=== PATIENT | male | born 1990 | race Two or more races ===

== ENCOUNTER 2025-01-12 20:55 | Emergency (ER) | payer MEDICAID, SELFPAY ==
[2025-01-12] VITALS (9 sets, daily range): BP systolic 93–111; BP diastolic 58–73; PULSE 92–117; RESP 16–24; TEMP 36.9–37.4; O2SAT 95–99; BMI 25.4
--- NOTE | 2025-01-12 21:04 | XR_ITS ---
Examination: Left elbow 3 views Technique: Elbow AP, oblique, lateral 3 views Exam date and time: Noont, 2024 2108 hours INDICATIONS: Patient fell today with elbow pain. FINDINGS: Complete elbow dislocation, articulating surface of the humerus displaced anteriorly Displaced fracture of the medial humeral condylar epiphysis IMPRESSION: Elbow dislocation with fracture.
--- NOTE | 2025-01-12 21:34 | PD.EDRME ---
Rapid Medical Screening Exam E Arrival date/time: 01/12/25 20:55 34M with history of alcohol use (drank earlier today) presents to ED with L elbow deformity and pain after falling. Patient states he's broken that area 3 times before. Chief Complaint: Extremity Injury, Upper Time Seen by Provider: 01/12/25 21:27 Vital signs: Vital Signs Temperature 98.4 F 01/12/25 21:29 Pulse Rate 92 01/12/25 21:29 Respiratory Rate 16 01/12/25 21:29 Blood Pressure 94/60 01/12/25 21:29 Pulse Oximetry (%) 96 01/12/25 21:29 Oxygen Delivery Method Room Air 01/12/25 21:29
--- NOTE | 2025-01-12 22:23 | PD.EDUPEX ---
Upper Extremity Injury RME/HPI General Chief Complaint: Extremity Injury, Upper Stated Complaint: L ELBOW INJURY Time Seen by Provider: 01/12/25 21:27 Arrival date/time: 01/12/25 20:55 RME / HPI RME / HPI narrative: 01/12/25 20:55 34M with history of alcohol use (drank earlier today) presents to ED with L elbow deformity and pain after falling. Patient states he's broken that area 3 times before. --------- This section includes all my notes and documentations, including HPI, PE, and ED course. Se Keller MD HPI: 34yo male presents to the ED for a chief complaint of left upper extremity injury. Patient states he was outside when he fell and hit left elbow hit the concrete. Patient denies any head strikes or loss of consciousness. Patient denies any other injuries. He declined to share more details about the fall. No other complaints reported. ROS: All negative except as documented in HPI. Physical Exam: General: Alert and oriented. In obvious pain. Eyes: Conjunctivae and lids clear. EOMI. PERRL. ENT: No signs of head trauma. Neck: Supple. No tenderness. Heart: RRR. Lungs: No respiratory distress. Good air movement. No rhonchi, wheezing, rales. Chest: No tenderness. Abdomen: Soft and nontender. Normal bowel sounds. No distension. No rebound or guarding. Back: No tenderness. Skin: Warm and dry. Neuro: Alert and oriented X 3. Cranial Nerves II-XII grossly intact. No peripheral motor deficits. Musculoskeletal: Remarkable for left elbow tenderness and deformity. All other major joints and bones are not tender with no limited ROM. I reviewed all diagnostic test results. My interpretation of the left elbow x-ray is dislocation and fracture. Blood tests are unremarkable. At this point, diagnoses include dislocation and fracture of left elbow. I discussed the case with our orthopedic surgeon, Dr. Persaud.? About the presentation and exam and diagnostics and treatments here.? And need of further care in the hospital.? Recommended transfer to trauma. I discussed the case with [facility] trauma orthopedic surgeon, Dr. Keller. About the presentation and exam and diagnostics and treatments here. And need of further care there. Recommended reduction in splint and outpatient follow-up. Under moderate sedation using fentanyl and Versed, patient was successfully reduced (confirmed with repeat x-rays) then applied long-arm splint and arm sling, see procedure notes. Significant improvement noted. Based on my best medical judgment, made decision no further evaluation or treatment indicated at this time. Patient understands and agrees to the discharge instructions customized and printed, see below. Discharge Instructions from Dr. Keller printed for you: 1. Your left elbow dislocation was successfully reduced. 2. Initially, I discussed your case with Dr. Persaud (our orthopedic surgeon). He recommended transfer to trauma orthopedic surgeon. I discussed your case with Dr. Keller (trauma orthopedic surgeon at [facility]). He recommended outpatient follow-up. 3. Wear the arm sling and keep the splint clean and dry and intact until cleared by a doctor taking care of you. 4. Ibuprofen 800 mg every 6-8 hours today and tomorrow to decrease inflammation then as needed. 5. Tylenol with codeine for severe pain. 6. Elevate above the heart for 3 days is much as possible. While laying on your back, place a pillow on your chest and placed the elbow on the pillow. 7. See a private doctor later today on 01/13/2025 for recheck and further care. Ask for a referral to see an orthopedic surgeon. 8. Seek immediate medical care with intolerable pain, if you can't move your fingers, your fingers turn cold and blue, or with any concerns. Se Keller MD Related Data Previous Rx's ?Medication ?Instructions ?Recorded acetaminophen 650 mg 650 mg PO Q8H PRN fever or pain 10/26/18 tablet,extended release #30 tabs acetaminophen 650 mg 650 mg PO Q8H PRN fever or pain 10/26/18 tablet,extended release #30 tabs ciprofloxacin HCl 500 mg tablet 500 mg PO Q12H #20 tabs 10/26/18 (Cipro) ibuprofen 600 mg tablet 600 mg PO Q8H PRN fever or pain 10/26/18 #30 tabs ibuprofen 600 mg tablet 600 mg PO Q8H PRN fever or pain 10/26/18 #30 tabs acetaminophen 300 mg-codeine 30 mg 2 tab PO Q8H PRN pain #20 tabs 01/13/25 tablet ibuprofen 800 mg tablet 800 mg PO Q8H PRN pain #30 tabs 01/13/25 Allergies Allergy/AdvReac Type Severity Reaction Status Date / Time pistachio nut Allergy Intermediate TURNS Verified 01/12/25 21:03 RED,THROAT SWELLS,EYES TURN YELLOW Review of Systems Review of Systems Systems Reviewed: All systems reviewed, normal except as documented Past Medical History Past Medical History CARDIAC: Negative Congestive Heart Failure RESPIRATORY: Negative Chronic Obstructive Pulmonary Disease (COPD) GENITOURINARY: Negative Renal Disease ENDOCRINE: Negative Diabetes Mellitus Type 1 or Diabetes Mellitus Type 2 Social History SMOKING STATUS: Current every day smoker ED Exam Narrative Physical exam: As noted in HPI. Course Quality Measures none Orders Category Date Time Status Insert IV NOW Care 01/12/25 21:33 Completed XR elbow comp LT min 3V Stat Exams 01/12/25 21:04 Completed XR elbow comp LT min 3V Stat Exams 01/12/25 23:08 Completed CBC Stat Lab 01/12/25 22:19 Completed CMP [Comprehensive Metabolic Panel] Stat Lab 01/12/25 22:19 Completed Magnesium Stat Lab 01/12/25 22:19 Completed PT [Prothrombin Time with INR] Stat Lab 01/12/25 22:19 Completed PTT [Partial Thromboplastin Time] Stat Lab 01/12/25 22:19 Completed Midazolam Inj [Versed Inj] Med 01/12/25 21:49 Discontinued 7.5 mg IVP X1 ONE Ondansetron Inj [Zofran Inj] Med 01/12/25 21:50 Discontinued 4 mg IVP X1 ONE Sodium Chloride 0.9% 1000 ml [Ns] 1,000 ml Med 01/12/25 21:50 Discontinued IV 999 mls/hr fentaNYL INJ [Sublimaze Inj] Med 01/12/25 21:49 Discontinued 100 mcg IVP X1 ONE Vital Signs Vital signs: Vital Signs Temperature 98.4 F 01/12/25 21:29 Pulse Rate 92 01/12/25 21:29 Respiratory Rate 16 01/12/25 21:29 Blood Pressure 94/60 01/12/25 21:29 Pulse Oximetry (%) 96 01/12/25 21:29 Oxygen Delivery Method Room Air 01/12/25 21:29 Procedures -ED Orthopedic Joint Reduction Joint #1: Time Out Performed: Yes Side: Left Joint Reduction Location: elbow Analgesia: procedural sedation Technique used: traction/counter-traction Post-reduction neuro exam: intact and no change Post-reduction vascular: intact and no change Post Reduction X-Ray Obtained: Yes Post Reduction X-Ray Results: reduced Splint Applied: Yes Patient Tolerated Procedure: other (see procedural sedation note) Procedural Sedation Indication: fracture/dislocation reduction Presedation Evaluation: Patient is alert, awake, and oriented x4. Patient is communicating and answering questions appropriately. Preparation: compliance monitor applied, pulse oximeter, capnometry used, reversal agents at bedside, suction/airway equipment at bedside and IV secured Fentanyl: IV (100 mcg) Midazolam: IV (7.5mg) Complications: hypoxia Interventions: oxygen applied and airway repositioned Splint Fabrication: Clinician Made Type: Other (Posterior long arm) Reason for Splint: Optimal Positioning, Pain Management and Minimize Deformities Site condition: Intact Circulation Distal to Splint: Yes Movement Distal to Splint: Yes Senation Distal to Splint: Yes Tolerance: Tolerates Well Extremity Injury MDM Narrative MDM Narrative:: Scribe Attestation: 01/12/25 - Kamala Wilder am scribing for and in the presence of Dr. Keller. Patient data External records reviewed:: [facility] previous records (Per chart review, patient has no relevant previous ED visits.) Clinical information provided by:: patient Social determinants that could affect healthcare access:: alcohol use Patient has the following chronic illnesses:: none How is presenting disease/condition affected by chronic disease/condition?: no chronic disease Evaluation data The following diagnostics were reviewed and interpreted by me:: lab results and radiology exam(s) Lab and/or radiology exams considered but not ordered:: none Interpretation Summary: I reviewed all diagnostic test results. My interpretation of the left elbow x-ray is dislocation and fracture. Blood tests are unremarkable. Medications / Prescriptions Medications or Prescriptions considered but not ordered:: none Medication administrations:: Medication Administration History Discontinued Medications Fentanyl Citrate (Fentanyl Cit Inj 50 Mcg/Ml Amp 2ml) 100 mcg IVP X1 ONE Stop: 01/12/25 21:50 Last Admin: 01/12/25 23:00 Dose: 100 mcg Documented By: DON Comments: C Sodium Chloride (Ns) 1,000 mls @ 999 mls/hr IV .Q1H1M ONE Stop: 01/12/25 22:50 Last Infusion: 01/13/25 00:05 Dose: Infused Documented By: Admin: 01/12/25 22:41 Dose: 999 mls/hr Documented By: DON Midazolam HCl (Midazolam Inj 1 Mg/Ml Vial 2 Ml) 7.5 mg IVP X1 ONE Stop: 01/12/25 21:50 Last Admin: 01/12/25 23:00 Dose: 7.5 mg Documented By: DON Comments: ADMIN BY MD KELLER PRIOR TO PROCEDURAL SEDATION. Ondansetron HCl (Ondansetron Inj 2 Mg/Ml Inj 2 Ml) 4 mg IVP X1 ONE; Protocol Stop: 01/12/25 21:51 Last Admin: 01/12/25 22:42 Dose: 4 mg Documented By: DON NS, Fentanyl, Verced, Zofran Consultations Consultation(s) initiated? (list below): Yes Consultation #1 (Physician, Specialty, Details): I discussed the case with our orthopedic surgeon, Dr. Persaud.? About the presentation and exam and diagnostics and treatments here.? And need of further care in the hospital.? Recommended transfer to trauma. Time: 22:29 Diagnosis Upper Extremity Injury Differential Diagnosis: sprain and strain of wrist, fracture of wrist, finger sprain, dislocation of finger, Colles' fracture, fracture of hand, dislocation of shoulder, fracture of humerus and fracture of clavicle Most likely diagnosis given after review of the tests above:: Dislocation and fracture of left elbow Admission Indicated Admission indicated?: not indicated Explain why admission is indicated or not indicated:: I discussed the case with our orthopedic surgeon, Dr. Persaud.? About the presentation and exam and diagnostics and treatments here.? And need of further care in the hospital.? Recommended transfer to trauma. I discussed the case with [facility] trauma orthopedic surgeon, Dr. Keller. About the presentation and exam and diagnostics and treatments here. And need of further care there. Recommended reduction in splint and outpatient follow-up. Under moderate sedation using fentanyl and Versed, patient was successfully reduced (confirmed with repeat x-rays) then applied long-arm splint and arm sling, see procedure notes. Significant improvement noted. Admission Request Was there a request for admission?: No Disposition Plan Disposition Plan: Discharge Discharge Attestation Discharge Attestation: The patient and all family members were given an opportunity to ask questions and understood the discharge instructions. Discharge instructions specifically effects, indications for sooner follow up or return to the emergency department, and the expected course of current diagnosis. Patient condition: Stable Discharge Plan Plan Patient Disposition: HOME (Self Care) Prescriptions/Referrals Prescriptions/Med Rec: New ibuprofen 800 mg tablet 800 mg PO Q8H PRN (Reason: pain) Qty: 30 0RF acetaminophen-codeine 300-30 mg tablet 2 tab PO Q8H MDD 6 PRN (Reason: pain) Qty: 20 0RF No Action acetaminophen 650 mg tablet extended release 650 mg PO Q8H PRN (Reason: fever or pain) Qty: 30 0RF Rx Instructions: swallow whole; do not crush, chew, break, dissolve, cut, or open ibuprofen 600 mg tablet 600 mg PO Q8H PRN (Reason: fever or pain) Qty: 30 0RF Rx Instructions: prn pain / fever acetaminophen 650 mg tablet extended release 650 mg PO Q8H PRN (Reason: fever or pain) Qty: 30 0RF Rx Instructions: swallow whole; do not crush, chew, break, dissolve, cut, or open ciprofloxacin HCl [Cipro] 500 mg tablet 500 mg PO Q12H Qty: 20 0RF Rx Instructions: administer dose 2 hrs before/6 hrs after dairy products/calcium/zinc/iron-containing products ibuprofen 600 mg tablet 600 mg PO Q8H PRN (Reason: fever or pain) Qty: 30 0RF Rx Instructions: prn pain / fever Referrals: Flavio Liu MD [Primary Care Provider] - In 1 week Problem List Clinical Impression: Dislocation of left elbow, Fracture of left elbow Patient/Caregiver Discharge Instructions Discharge Activity: activity as tolerated Education Materials: ED Elbow Dislocation, ED Elbow Fracture Additional Instructions: Discharge Instructions from Dr. Keller printed for you: 1. Your left elbow dislocation was successfully reduced. 2. Initially, I discussed your case with Dr. Persaud (our orthopedic surgeon). He recommended transfer to trauma orthopedic surgeon. I discussed your case with Dr. Keller (trauma orthopedic surgeon at [facility]). He recommended outpatient follow-up. 3. Wear the arm sling and keep the splint clean and dry and intact until cleared by a doctor taking care of you. 4. Ibuprofen 800 mg every 6-8 hours today and tomorrow to decrease inflammation then as needed. 5. Tylenol with codeine for severe pain. 6. Elevate above the heart for 3 days is much as possible. While laying on your back, place a pillow on your chest and placed the elbow on the pillow. 7. See a private doctor later today on 01/13/2025 for recheck and further care. Ask for a referral to see an orthopedic surgeon. 8. Seek immediate medical care with intolerable pain, if you can't move your fingers, your fingers turn cold and blue, or with any concerns. Print Language: Luxembour[place] Stand Alone Forms: [employer] Award Info., Patient Portal Info Letter
[2025-01-12 22:31] LABS: Basophils % (Auto) 0 % (0-2.5); Eosinophils % (Auto) 0 % (0-10); Hematocrit 41.3 % (41.0-53.0); Hemoglobin 14.9 g/dL (13.5-16.0); Immature Granulocytes % (Auto) 1 % (0-0); Immature Granulocytes Auto 0.07 Thou/mm3 (0.00-0.00); Lymphocytes # (Auto) 1.6 Thou/mm3 (1.0-4.8); Lymphocytes % (Auto) 13 % (10-50); Mean Corpuscular HGB Conc 36.1 g/dl (31.0-37.0); Mean Corpuscular Volume 86 fL (80-100); Monocytes # (Auto) 0.6 Thou/mm3 (0.0-0.8); Monocytes % (Auto) 5 % (0-12); Neutrophils % (Auto) 82 % (37-80); Nucleated Red Blood Cell % 0 /100 WBC (0); Platelet Count 272 Thou/mm3 (140-440); RDW Standard Deviation 40.3 fL (35.1-43.9); Red Blood Count 4.81 Miln/mm3 (4.50-5.90); White Blood Count 12.3 Thou/mm3 (3.8-10.6)
[2025-01-12] MEDS: SODIUM CHLORIDE 0.9% 1000 ML 1,000 ML 999 ML IV (22:41)
[2025-01-12] MEDS: ONDANSETRON INJ 2 MG/ML INJ 2 ML 4 MG IVP (22:42)
[2025-01-12 22:43] LABS: Alanine Aminotransferase 23 U/L (10-49); Albumin, Serum 4.6 gm/dL (3.5-5.0); Anion Gap 12 (7-16); Aspartate Amino Transferase 22 U/L (0-34); BUN/Creatinine Ratio 7 Ratio (12-20); Bilirubin,Total 0.4 mg/dL (0.3-1.2); Blood Urea Nitrogen 8 mg/dL (9-23); Calcium 9.6 mg/dL (8.3-10.6); Calcium (Corrected) 9.6 mg/dL (8.5-10.1); Carbon Dioxide 23.5 mMol/L (20.0-31.0); Chloride 108 mMol/L (98-107); Creatinine (Component) 1.2 mg/dL (0.6-1.3); Estimated Creatinine Clearance 85.5 mL/min (>60); Globulin 2.2 gm/dL (2.3-3.5); Glucose 116 mg/dL (74-106); Magnesium 2.3 mg/dL (1.6-2.6); Osmolality,Calculated 284 (275-295); Potassium 3.9 mMol/L (3.4-5.1); Sodium 143 mMol/L (136-145); Total Protein 6.8 gm/dL (5.7-8.2); eGFR > 60 See Note
[2025-01-12 22:44] LABS: Albumin/Globulin Ratio 2.1 (1.2-2.2); Alkaline Phosphatase 66 U/L (46-116)
[2025-01-12 22:54] LABS: Partial Thromboplastin Time 22.1 Seconds (22.0-36.0); Prothrombin Time 10.8 Seconds (9.0-12.2)
[2025-01-12] MEDS: fentaNYL CIT INJ 50 mCg/ML AMP 2ML 100 MCG IVP (23:00)
[2025-01-12] MEDS: MIDAZOLAM INJ 1 MG/ML VIAL 2 ML 7.5 MG IVP (23:00)
--- NOTE | 2025-01-12 23:08 | XR_ITS ---
Examination: Left elbow 3 views Technique: Elbow AP, oblique, lateral 3 views Exam date and time: January 12, 2025 11:20 PM Comparison January 12, 2025 INDICATIONS: Elbow dislocation postreduction films IMPRESSION: Reduction elbow dislocations 24 mm displaced humeral condylar fracture fragment with adjacent 1 mm fracture fragment On the radius intact IMPRESSION: Successful elbow dislocation Displaced medial humeral condylar fracture fragments.
--- NOTE | 2025-01-13 00:16 | PC.NURSE ---
Per Kathryn, Pt is ok for out patient referral after reduction. Splint in Place, MD ALEXANDER spoke to transfer center.
--- NOTE | 2025-01-13 00:51 | PC.NURSE ---
Pt awake, alert, satting 98% on RA, tolerating PO, ambulating to/from restroom unassisted. Per MD Keller pt now ok to DC. Pt had opportunity to speak with provider prior to DC. Pt had family member at bedside giving pt ride home.
[2025-01-13 01:04] VITALS: BP 116/69; PULSE 104; RESP 18; O2SAT 95
== END 2025-01-13 01:06 | disposition home or self-care (01) ==
PROVIDERS: Emergency Provider Emergency Medicine; PCP Family Medicine
DX: S42.402A Unspecified fracture of lower end of left humerus, initial encounter for closed fracture (principal); W22.09XA Striking against other stationary object, initial encounter
CPT/HCPCS: 29105; 36415; 73080; 80053; 83735; 85025; 85610; 85730; 96361; 96374; 99285; J2250; J2405; J3010; J7030

== ENCOUNTER → 2025-03-16 | Outpatient (CLI) | payer MEDICAID, SELFPAY ==
--- NOTE | 2025-03-16 15:10 | XR_ITS ---
Examination: Left elbow 3 views Technique: Elbow AP, oblique, lateral 3 views Exam date and time: March 16, 2025 1521 hours Comparison January 12, 2025 INDICATIONS: History elbow fractures elbow dislocation FINDINGS: Ununited fracture fragments off the medial humeral condylar region No acute elbow fracture Small elbow effusion IMPRESSION: Ununited fracture fragments off the medial humeral condylar region, the largest fracture fragment 16 mm.
== END | disposition home or self-care (01) ==
PROVIDERS: PCP Family Medicine; Referring Provider Orthopaedic Surgery; Visit Provider Orthopaedic Surgery
DX: S42.462A Displaced fracture of medial condyle of left humerus, initial encounter for closed fracture (principal); X58.XXXA Exposure to other specified factors, initial encounter
CPT/HCPCS: 73080